=== PATIENT | female | born 1995 | race Caucasian/White ===

== ENCOUNTER 2016-12-30 21:51 | Emergency (ER) | payer BC, MEDICAID ==
--- NOTE | 2016-12-30 22:27 | ED Physician Chart ---
ED Chief Complaint/HPI - Patient Information Date Seen:: 12/30/16 Time Seen:: 22:15 Chief Complaint:: Itchiness in both eyes since last evening. History of Present Illness:: Pt was brought in by private auto for the above reason. No visual changes in terms of blurry vision or diplopia. No eye pain. No N/V. No fever. Pt denies use of any new medication, cosmetic product, or contact with any new animal or plant. Allergies:: Allergies Allergy/AdvReac Type Severity Reaction Status Date / Time No Known Allergies Allergy Verified 12/30/16 22:02 Vitals:: Vital Signs - 8 hr 12/30/16 21:55 Temp 97.4 F HR 69 RR 18 BP 126/79 O2 Sat % 99 Historian:: Patient Family MD/PCP:: Dr. Rebolledo LMP:: 12/23/16 Review:: Nurse's Note Reviewed ED Review of Systems - Review of Systems General/Constitutional: No fever, No chills, No weight loss, No weakness, No diaphoresis, No edema, No loss of appetite Skin: No rash, No bruising, Other (Bilateral periorbital swelling) Head: No headache, No light-headedness Eyes: No loss of vision, No pain, No diplopia ENT: No earache, No nasal drainage, No sore throat Neck: No neck pain, No swelling, No thyromegaly, No stiffness Cardio Vascular: No chest pain, No palpitations, No PND, No orthopnea, No edema Pulmonary: No cough, No sputum, No wheezing GI: No nausea, No vomiting, No diarrhea, No pain G/U: No dysuria, No frequency, No hematuria Brokerage Office Manager: No vaginal discharge, No abnormal vaginal bleed Musculoskeletal: No bone or joint pain, No back pain, No muscle pain Endocrine: No polyuria, No polydipsia Psychiatric: No prior psych history Hematopoietic: No bruising, No lymphadenopathy Allergic/Immuno: No urticaria, No angioedema Neurological: No syncope, No weakness, No paresthesia, No headache, No dizziness , No confusion, No vertigo ED Past Medical History - Past Medical History Past Medical History: Asthma/COPD Family History: Heart disease (mother) Social History: Non Smoker, Alcohol (rare use), No Drug Use, Single, Other ( lives with her mother.) Employment:: unemployed. Surgical History: other (L knee surgery at age 17 related to tendon injury) Psychiatricy History: None Medication: Reviewed Family Medical History - Family Member Mother History Unknown: Yes ED Physical Exam - Physical Examination General/Constitutional: Awake, Well-developed, well-nourished, Alert, No distress, Non-toxic appearing, Ambulatory Head: Atraumatic Eyes: PERRL, EOMI Other Eyes comments:: Mild swelling at periorbital region. L>R. No erythema or exudate. Skin: Nl inspection, No rash, No skin lesions, No ecchymosis, Well hydrated, No lymphadenopathy ENMT: External ears, nose nl, Nasal exam nl, Oropharynx nl Neck: Nontender, Full ROM w/o pain, No JVD, No nuchal rigidity, No mass, No stridor Respiratory: Nl effort/Exclusion, Clear to Auscultation, No Wheeze/Rhonchi/Rales Cardio Vascular: RRR, No murmur, gallop, rubs, NL S1 S2 GI: No tenderness/rebounding/guarding, No organomegaly, No hernia, Normal BS's, Nondistended, No mass/bruits, No McBurney tenderness Other GI comments:: Abdomen is soft. Extremities: No tenderness or effusion, No edema Neuro/Psych: Alert/oriented (oriented x 3), Judgement/insight normal, Mood normal, Normal gait, No focal deficits ED Septic Shock - . Is Septic Shock (SBP<90, OR Lactate>4 mmol\L) present?: No - <6hrs of presentation: Vital Signs: Vital Signs - 8 hr 12/30/16 21:55 Temp 97.4 F HR 69 RR 18 BP 126/79 O2 Sat % 99 ED Reassessment (Disposition) - Reassessment Reassessment:: [id number] Pt feels much better. Eye itchiness and periorbital edema have subsided. Pt requests to go home now and does not want further observation/management in hospital. Aftercare instructions have been given. Her boyfriend Nyasia will drive pt home. Reassessment Condition:: Improved - Diagnosis Diagnosis:: Allergic reaction in periorbital region, essentially resolved. - Aftercare/Follow up Instructions Aftercare/Follow-Up Instructions:: Refer to Discharge Instructions Notes:: May take Benadryl 50 mg po q6h prn allergy. Drowsiness precautions given with the use of Benadryl. Avoid contact with any potential allergens. F/U with PCP Dr. Rebolledo in one day for recheck. Return to ER immediately if condition worsens or if any further questions/problems. Medication Prescribed:: None - Patient Disposition Discharge/Transfer:: Home Time:: 23:50 Condition at Disposition:: Stable, Improved ED Discharge Plan - Patient Disposition Admit/Discharge/Transfer: PT DISCHARGED HOME Condition at Disposition: Stable Instructions: Allergies, [id number] Additional Instructions: FOLLOW UP WITH PMD TOMORROW, GO BACK TO EMERGENCY ROOM IF SYMPTOMS WORSEN.
== END 2016-12-30 23:50 | disposition home or self-care (01) ==
LOC: ER 21:51
DX: T78.40XA Allergy, unspecified, initial encounter (principal); J45.909 Unspecified asthma, uncomplicated; J44.9 Chronic obstructive pulmonary disease, unspecified; X58.XXXA Exposure to other specified factors, initial encounter
CPT/HCPCS: 96374; J1200; Z7502